=== PATIENT | female | born 1970 | race Caucasian/White ===

== ENCOUNTER 2019-05-20 23:12 | Inpatient (IN) ==
[2019-05-20 23:57] LABS: Color,Urine Orange (Yellow)
[2019-05-20 23:58] LABS: Clarity,Urine Clear (Clear)
[2019-05-21 00:12] LABS: Hyaline Casts,Urine None Seen per lpf (None-Few); Squamous Epithelial Cell,Urine Few per lpf (None-Few)
[2019-05-21 00:14] LABS: Bacteria,Urine None Seen per hpf (None-Few)
[2019-05-21] MEDS ORDERED: Ondansetron 4 MG/2 ML VIAL IVP ONE ×3 (00:33→13:12)
[2019-05-21] MEDS ORDERED: Morphine Sulfate 2 MG/ML SYRINGE IVP ONE (00:33)
[2019-05-21 00:43] LABS: Basophils % 0.2 %; Eosinophils % 0.1 %; Hematocrit 37.9 % (35.3-44.9); Hemoglobin 12.3 g/dL (11.5-15.4); Immature Granulocytes % 0.6 % (0-4); Lymphocytes # 1.6 K/mcL (0.6-4.6); Lymphocytes % 8.4 %; Mean Corpuscular HGB Conc 32.5 g/dL (31.6-35.5); Mean Corpuscular Hemoglobin 22.9 pg (28.0-33.3); Mean Corpuscular Volume 70.4 fL (83.0-100.0); Mean Platelet Volume 10.5 fL (9.4-12.4); Monocytes # 0.8 K/mcL (0.0-1.3); Monocytes % 3.9 %; Neutrophils # 16.8 K/mcL (1.6-8.9); Platelet Count 320 K/mcL (140-400); Red Blood Count 5.38 M/mcL (3.82-4.97); Red Cell Distribution Width 14.9 % (11.5-14.5); Segmented Neutrophils % 86.8 %; White Blood Count 19.3 K/mcL (4.3-11.1)
[2019-05-21 00:53] LABS: Albumin 4.6 g/dL (3.5-5.7); Albumin/Globulin Ratio 1.5 (1.1-2.2); Bilirubin,Direct 0.1 mg/dL (0.0-0.2); Bilirubin,Indirect 0.4 mg/dL (0.0-1.0); Bilirubin,Total 0.5 mg/dL (0.3-1.0); Calcium 9.9 mg/dL (8.6-10.3); Globulin 3.1 g/dL (2.4-3.5); Potassium 3.8 mEq/L (3.5-5.1); Total Protein 7.7 g/dL (6.4-8.9)
[2019-05-21 00:57] LABS: Troponin I < 0.03 ng/mL (< 0.04)
[2019-05-21] MEDS ORDERED: 0.9 % Sodium Chloride 1,000 ML IVC ONE (01:09)
[2019-05-21] MEDS ORDERED: *HR* HYDROmorphone (PF) 1 MG/ML SYRINGE IVP ONE ×2 (02:35→02:36)
[2019-05-21] MEDS ORDERED: Naloxone 0.4 MG/ML INJ IVP PRN ×2 (03:48→14:53)
[2019-05-21] MEDS ORDERED: Ondansetron ODT 4 MG TAB.RAPDIS SL PRN ×2 (03:48→14:53)
[2019-05-21] MEDS ORDERED: cefTRIAXone 1,000 MG in 0.9 % Sodium Chloride Mini Bag 100 ML IVPB ONE (03:55)
[2019-05-21] MEDS: 0.9 % Sodium Chloride 1,000 ML IVC SCH ×2 (04:35→12:51)
[2019-05-21 08:39] LABS: Basophils % 0.1 %; Eosinophils % 0.2 %; Hematocrit 31.7 % (35.3-44.9); Immature Granulocytes % 0.3 % (0-4); Lymphocytes # 1.9 K/mcL (0.6-4.6); Lymphocytes % 20.2 %; Mean Corpuscular HGB Conc 32.5 g/dL (31.6-35.5); Mean Corpuscular Hemoglobin 22.8 pg (28.0-33.3); Mean Corpuscular Volume 70.3 fL (83.0-100.0); Mean Platelet Volume 10.3 fL (9.4-12.4); Monocytes # 0.8 K/mcL (0.0-1.3); Monocytes % 7.9 %; Neutrophils # 6.8 K/mcL (1.6-8.9); Platelet Count 267 K/mcL (140-400); Red Blood Count 4.51 M/mcL (3.82-4.97); Red Cell Distribution Width 14.8 % (11.5-14.5); Segmented Neutrophils % 71.3 %
[2019-05-21 08:40] LABS: Hemoglobin 10.3 g/dL (11.5-15.4); White Blood Count 9.6 K/mcL (4.3-11.1)
[2019-05-21 08:58] LABS: BUN/Creatinine Ratio 10 (6-26); Blood Urea Nitrogen 10 mg/dL (6-20); Calcium 8.5 mg/dL (8.6-10.3); Carbon Dioxide 26 mEq/L (23-29); Chloride 106 mEq/L (98-107); Glucose 110 mg/dL (70-105); Osmolality,Calculated 286 (280-300); Potassium 3.7 mEq/L (3.5-5.1); Sodium 138 mEq/L (136-145); eGFR For African Americans > 60 (> 60); eGFR For Non-African Americans 59 (> 60)
[2019-05-21 09:50] LABS: Estimated Average Glucose 131 mg/dl
[2019-05-21 10:06] LABS: Bilirubin,Urine Negative (Negative); Blood,Urine Trace (Negative); Clarity,Urine Clear (Clear); Color,Urine Orange (Yellow); Glucose,Urine (UA) Normal (Normal); Ketones,Urine Negative (Negative); Leukocyte Esterase,Urine Negative (Negative); Nitrite,Urine Positive (Negative); Protein,Urine Negative (Neg-Trace); Specific Gravity,Urine 1.013 (1.010-1.025); Urobilinogen,Urine Normal (Normal)
[2019-05-21 10:11] LABS: Bacteria,Urine None Seen per hpf (None-Few); Hyaline Casts,Urine None Seen per lpf (None-Few); Squamous Epithelial Cell,Urine Few per lpf (None-Few); WBC,Urine 0-3 per hpf (0-3)
[2019-05-21] MEDS ORDERED: Acetaminophen IV 1,000 MG/100 ML INFUS..BTL IVPB ONE (10:27)
[2019-05-21] MEDS ORDERED: Isovue-300 50ML VIAL ONE (13:03)
[2019-05-21] MEDS ORDERED: *HR* Midazolam HCl 2 MG/2 ML VIAL ONE (13:05)
[2019-05-21] MEDS ORDERED: *HR* FentaNYL (PF) 100 MCG/2 ML VIAL ONE (13:05)
[2019-05-21] MEDS ORDERED: *HR* Propofol 200 MG/20 ML VIAL IVP ONE (13:05)
[2019-05-21] MEDS ORDERED: Lidocaine -MPF 2% 2 ML VIAL ONE (13:10)
[2019-05-21] MEDS ORDERED: Albuterol 2.5 MG/3 ML NEBULIZER IH ONE (13:12)
[2019-05-21] MEDS ORDERED: *HR* Midazolam HCl 2 MG/2 ML VIAL IVP PRN (13:12)
[2019-05-21] MEDS ORDERED: Morphine Sulfate 2 MG/ML SYRINGE IVP PRN (13:12)
[2019-05-21] MEDS ORDERED: Ketorolac 30 MG/ML VIAL IVP ONE (13:12)
[2019-05-21] MEDS ORDERED: *HR* OxyCODONE/APAP 5/325 TABLET PO PRN (13:12)
[2019-05-21] MEDS ORDERED: Albuterol 2.5 MG/3 ML NEBULIZER ONE (13:16)
[2019-05-21] MEDS ORDERED: Scopolamine Patch 1.5 MG PATCH.TD72 ONE (13:17)
[2019-05-21] MEDS ORDERED: Acetaminophen IV 0 MG/0 ML INFUS..BTL ONE (13:23)
[2019-05-21] MEDS ORDERED: CAFFEINE PO PRN (13:35)
[2019-05-21] MEDS ORDERED: ASPIRIN PO PRN (13:35)
[2019-05-21] MEDS ORDERED: ALPRAZolam 0.25 MG TABLET PO PRN (13:35)
[2019-05-21] MEDS ORDERED: BUTALBITAL PO PRN (13:35)
[2019-05-21] MEDS ORDERED: [UNRECOGNIZED DRUG - OTHER] PO PRN (13:35)
[2019-05-21] MEDS ORDERED: Ketorolac 30 MG/ML VIAL ONE (13:50)
[2019-05-21] MEDS ORDERED: Dexamethasone 4 MG/ML VIAL ONE (13:50)
[2019-05-21] MEDS ORDERED: *HR* Succinylcholine 200 MG/10 ML VIAL IVP ONE (14:01)
[2019-05-21] MEDS ORDERED: Acetaminophen/Butalbital/CaffeineTABLET PO PRN (14:04)
[2019-05-21] MEDS ORDERED: tiZANidine 4 MG TABLET PO PRN (14:05)
[2019-05-21] MEDS ORDERED: 0.9 % Sodium Chloride 1,000 ML IVC SCH (14:53)
[2019-05-21] MEDS ORDERED: TIZANIDINE HCL 2 MG PO SCH (21:00)
[2019-05-22 05:13] LABS: Basophils % 0.1 %; Eosinophils % 0.1 %; Hematocrit 28.9 % (35.3-44.9); Hemoglobin 9.5 g/dL (11.5-15.4); Immature Granulocytes % 0.3 % (0-4); Lymphocytes # 2.4 K/mcL (0.6-4.6); Lymphocytes % 32.6 %; Mean Corpuscular HGB Conc 32.9 g/dL (31.6-35.5); Mean Corpuscular Hemoglobin 23.1 pg (28.0-33.3); Mean Corpuscular Volume 70.1 fL (83.0-100.0); Mean Platelet Volume 10.8 fL (9.4-12.4); Monocytes # 0.5 K/mcL (0.0-1.3); Neutrophils # 4.5 K/mcL (1.6-8.9); Platelet Count 265 K/mcL (140-400); Red Blood Count 4.12 M/mcL (3.82-4.97); Red Cell Distribution Width 14.9 % (11.5-14.5); Segmented Neutrophils % 59.9 %; White Blood Count 7.5 K/mcL (4.3-11.1)
[2019-05-22 05:18] LABS: BUN/Creatinine Ratio 12 (6-26); Blood Urea Nitrogen 10 mg/dL (6-20); Calcium 8.2 mg/dL (8.6-10.3); Carbon Dioxide 26 mEq/L (23-29); Chloride 108 mEq/L (98-107); Glucose 103 mg/dL (70-105); Osmolality,Calculated 287 (280-300); Potassium 3.7 mEq/L (3.5-5.1); Sodium 139 mEq/L (136-145); eGFR For African Americans > 60 (> 60); eGFR For Non-African Americans > 60 (> 60)
[2019-05-22] MEDS: Acetaminophen/Butalbital/CaffeineTABLET PO PRN ×2 (07:28→21:46)
[2019-05-22] MEDS ORDERED: cefTRIAXone 1,000 MG in 0.9 % Sodium Chloride Mini Bag 100 ML IVPB SCH ×2 (09:00)
[2019-05-22] MEDS ORDERED: Loratadine 10 MG TABLET PO SCH (09:00)
[2019-05-22] MEDS ORDERED: BuPROPion XL (24 HR) 150 MG TABLET PO SCH (09:00)
[2019-05-22] MEDS ORDERED: NON-FORMULARY MEDICATION 1 EACH EACH (Cetirizine Hcl [Zyrtec] 10 MG) PO SCH (09:00)
[2019-05-22] MEDS: BuPROPion XL (24 HR) 150 MG TABLET PO SCH (10:00)
[2019-05-22] MEDS: Loratadine 10 MG TABLET PO SCH (10:01)
[2019-05-22] MEDS: ALPRAZolam 0.25 MG TABLET PO PRN ×2 (10:11→19:40)
[2019-05-22 13:04] LABS: Hematocrit 31.3 % (35.3-44.9); Hemoglobin 10.1 g/dL (11.5-15.4)
[2019-05-22] MEDS ORDERED: Rizatriptan Benzoate [Maxalt] 10 MG PO PRN (13:07)
[2019-05-22] MEDS: tiZANidine 4 MG TABLET PO PRN (21:46)
[2019-05-23] MEDS ORDERED: Rizatriptan Benzoate [Maxalt] 10 MG PO PRN (00:45)
[2019-05-23 07:27] VITALS: BP 104/69
[2019-05-23] MEDS: Loratadine 10 MG TABLET PO SCH (08:57)
[2019-05-23] MEDS: BuPROPion XL (24 HR) 150 MG TABLET PO SCH (08:58)
[2019-05-23] MEDS: tiZANidine 4 MG TABLET PO PRN (09:01)
[2019-05-27 17:08] LABS: Calculi Mass 52 mg
== END 2019-05-23 10:18 | disposition home or self-care (01) | DRG 661 ==
LOC: 2ANU 23:12 → EMEROOARM 23:12 → SUATTDRO 05-21 02:50 → 2ANU 05-21 03:06
PROVIDERS: ADMIT Family Medicine; ATTEND Internal Medicine